=== PATIENT | female | born 1980 | race Caucasian/White ===

== ENCOUNTER 2018-08-07 11:21 | Inpatient (IN) | payer OTHER ==
[2018-08-07 12:28] LABS: Absolute Lymphocytes (CBC) 1.5 K/uL (0.7-4.9); Absolute Monocytes 0.7 K/uL (0.1-1.3); Absolute Neutrophil 7.8 K/uL (1.8-8.0); Basophils % 0.3 % (0-1.3); Eosinophils % 0.9 % (0-4.4); Hematocrit 30.7 % (36.0-45.0); Lymphocytes % 14.9 % (15.3-44.8); MPV 9.2 fL (7.6-11.3); Monocytes % 6.9 % (3.3-12.3); RBC Red Blood Cell Count 3.67 M/uL (3.86-4.86)
[2018-08-07 12:36] LABS: Urine Appearance CLEAR; Urine Bilirubin NEGATIVE (NEG); Urine Blood NEGATIVE (NEG); Urine Color YELLOW; Urine Glucose NEGATIVE (NEG); Urine Protein NEGATIVE (NEG); Urine Urobilinogen 0.2 mg/dL (0.2-1.0)
[2018-08-07 12:45] LABS: ALT/SGPT 38 U/L (12-78); AST/SGOT 31 U/L (15-37); Albumin 2.3 g/dL (3.4-5.0); Alkaline Phosphatase 89 U/L (45-117); BUN Blood Urea Nitrogen 7 mg/dL (7-18); Bicarbonate 25 mmol/L (21-32); Bilirubin Total 0.1 mg/dL (0.2-1.0); Glucose Level 94 mg/dL (74-106); Potassium 3.7 mmol/L (3.5-5.1); Protein, Total 6.3 g/dL (6.4-8.2); Sodium Level 139 mmol/L (136-145); Uric Acid 6.8 mg/dL (2.6-6.0)
[2018-08-07 13:09] LABS: Urine Bacteria <20 /HPF (<20); Urine Culture Reflex Order NOT NEEDED; Urine RBC <5 /HPF (NONE SEEN)
[2018-08-07 13:09] LABS: Urine Protein/Creatinine Ratio 0.18 ratio (<0.15)
[2018-08-07] MEDS ORDERED: Ringers Lactate 1,000 ML IV PRN (14:03)
[2018-08-07] MEDS ORDERED: miSOPROStol 100 MCG TAB VAG PRN (14:06)
[2018-08-07] MEDS ORDERED: MAGNESIUM SULF/STERILE WATER 1,000 ML IV SCH (15:00)
[2018-08-07] MEDS ORDERED: Ringers Lactate 1,000 ML IV SCH (15:00)
[2018-08-07 15:13] LABS: RPR Titer ND
[2018-08-07 15:52] VITALS: BMI 33.8
[2018-08-07] MEDS ORDERED: ZOLPIDEM TARTRATE 5 MG TABLET PO PRN (17:16)
[2018-08-07] MEDS ORDERED: LABETALOL 20 MG/4ML SYRINGE IV ONE (17:26)
[2018-08-07] MEDS ORDERED: LABETALOL 20 MG/4ML SYRINGE IV PRN (18:04)
[2018-08-07] MEDS ORDERED: OXYTOCIN/LR 20 UNIT/1,000 ML BAG IV SCH (21:00)
[2018-08-07 21:27] LABS: RPR (Rapid Plasma Reagin) NON-REACT (NON-REACT)
[2018-08-08] MEDS ORDERED: BUTORPHANOL 1 MG/ML INJ IV PRN (00:04)
[2018-08-08] MEDS ORDERED: PROMETHAZINE 25 MG/ML VIAL IV ONE (00:04)
[2018-08-08] MEDS ORDERED: VALACYCLOVIR 500 MG TAB PO SCH (09:00)
[2018-08-08] MEDS ORDERED: PROMETHAZINE 25 MG/ML VIAL ONE (13:27)
[2018-08-08] MEDS ORDERED: LABETALOL 20 MG/4ML SYRINGE IV ONE (15:06)
[2018-08-08] MEDS ORDERED: BUPIVACAINE 0.25% PF 10 ML VIAL IV PRN (15:25)
[2018-08-08] MEDS ORDERED: FENTANYL/BUPIVACAINE/NS/PF 200 MCG/100 ML BAG EP PRN (15:25)
[2018-08-08] MEDS ORDERED: FENTANYL CITR 100 MCG/2 ML IV ONE (15:35)
[2018-08-08] MEDS ORDERED: ROPIVACAINE HCL 20 ML ONE (16:11)
[2018-08-08] MEDS ORDERED: NA CIT/CITRIC AC 30 ML ORAL UDC PO ONE (17:00)
[2018-08-08] MEDS ORDERED: CEFAZOLIN 2 GM in NA CHLORIDE 0.9% 100 ML IVPB ONE (19:04)
[2018-08-08] MEDS ORDERED: FAMOTIDINE 20 MG/2 ML VIAL IV ONE (19:24)
[2018-08-08] MEDS ORDERED: CEFAZOLIN 2GM (PREMIX IV) 0 GM/0 ML BAG ONE (19:26)
[2018-08-08] MEDS ORDERED: NA CHLORIDE 0.9% 0 ML IV ONE (19:31)
[2018-08-08] MEDS ORDERED: METHYLERGONOVINE 0.2MG/ML AMP IM ONE (19:45)
[2018-08-08] MEDS ORDERED: CARBOPROST TROME 250 MCG/ML IM ONE (19:45)
[2018-08-08] MEDS ORDERED: METOCLOPRAMIDE 10 MG/2mL INJ IV SCH (20:00)
[2018-08-08] MEDS ORDERED: LIDOCAINE 2% W/EPI 1:200,000 MPF 20 ML VIAL IM ONE (20:33)
[2018-08-08] MEDS ORDERED: OXYTOCIN 10 UNIT/ML ML IV ONE (20:35)
[2018-08-08] MEDS ORDERED: MORPHINE SULFATE/PF 1 MG/ML (10 ML AMP) ONE (20:36)
[2018-08-08] MEDS ORDERED: ACETAMINOPHEN 500 MG TAB PO PRN (21:05)
[2018-08-08] MEDS ORDERED: BISACODYL 10 MG RECTAL SUPP RECT PRN (21:05)
[2018-08-08] MEDS ORDERED: Oxycodone HCl/Acetaminophen 1 TAB TAB PO PRN ×2 (21:05)
[2018-08-08] MEDS ORDERED: ONDANSETRON 4 MG (ODT) TAB PO PRN (21:05)
[2018-08-08] MEDS ORDERED: DOCUSATE NA/SENNA CONC 1 TAB PO PRN (21:05)
[2018-08-08] MEDS ORDERED: KETOROLAC 30 MG/ML INJ IV PRN (21:06)
--- NOTE | 2018-08-08 21:08 | P.OP ---
Heel Seat Pounder: Adela Trammell Preoperative diagnosis: 37 weeks preeclampsia, category II tracing remote from delivery Postoperative diagnosis: same Primary procedure: Primary low transverse section Anesthesia: Epidural Estimated blood loss: 800cc Specimen: Cord blood, placenta Operative Technique: The patient was taken to the operating room where epidural anesthesia was found to be adequate. The patient was prepped and draped in the usual sterile fashion in the dorsal supine position with a left-weller tilt. A Pfannenstiel skin incision was made with the scalpel and carried through to the underlying layer of fascia using the Bovie. The fascia was incised in the midline and extended laterally using Lloyd scissors. Macie clamps were used to elevate the superior aspect of the fascial incision, which was elevated, and the underlying rectus muscles were dissected off bluntly and using Lloyd scissors. Attention was then turned to the inferior aspect of the fascial incision, which in similar fashion was grasped with Macie clamps, elevated, and the underlying rectus muscles were dissected off bluntly and using Lloyd scissors. The rectus muscles were dissected in the midline. The peritoneum was bluntly dissected, entered, and extended superiorly and inferiorly with good visualization of the bladder. The bladder blade was inserted. The vesicouterine peritoneum was identified with pickups and entered sharply using Metzenbaum scissors. This incision was extended laterally and the bladder flap was created digitally. The bladder blade was reinserted. The lower uterine segment was incised in a transverse fashion using the scalpel and extended using manual traction. Clear fluid was noted. The was subsequently delivered atraumatically. The nose and mouth were bulb suctioned. The cord was clamped and cut. The was subsequently handed to the awaiting nursery nurse. The placenta was removed spontaneously intact with a 3- vessel cord noted. The uterus was exteriorized and cleared of all clots and debris. The uterine incision was repaired in 2 layers using 0 vicryl suture. Hemostasis was visualized. The uterus was returned to the abdomen. The uterine incision was reexamined and was noted to be hemostatic. The rectus muscles were reapproximated in the midline using 1-0 Vicryl. The fascia was closed with 0 Vicryl, the subcutaneous layer was closed with 2-0 plain gut, and the skin was closed with 3.0 vicryl on a Regan needle. Sponge, lap, and instrument counts were correct x2. The patient was stable at the completion of the procedure and was subsequently transferred to the recovery room in stable condition. Complications: None Drain(s): Urinary catheter Transferred to: Recovery Room Condition: Good
[2018-08-09] MEDS ORDERED: DIPHENHYDRAMINE 50 MG/ML VIAL IV ONE (02:01)
[2018-08-09 06:21] LABS: Absolute Lymphocytes (CBC) 1.5 K/uL (0.7-4.9); Absolute Monocytes 0.6 K/uL (0.1-1.3); Absolute Neutrophil 9.9 K/uL (1.8-8.0); Basophils % 0.2 % (0-1.3); Eosinophils % 0.3 % (0-4.4); Hematocrit 29.5 % (36.0-45.0); Lymphocytes % 12.2 % (15.3-44.8); MPV 9.1 fL (7.6-11.3); Monocytes % 5.3 % (3.3-12.3)
[2018-08-09 08:44] VITALS: O2SAT 99
[2018-08-09] MEDS ORDERED: FAMOTIDINE 20 MG/2 ML VIAL IV ONE (19:04)
--- NOTE | 2018-08-09 21:18 | P.PN ---
Date of Service: 08/09/18 Patient is a 38 y/o s/p primary section due to category II heart tracing remote from delivery and arrest of labor. She is doing well. She is tolerating diet. Her pain is well controlled. She is afebrile. She has no complaints today she is bonding well with the baby and is breast-feeding. care complicated by preeclampsia. Vital sign stable; BP still slightly elevated. General: Resting in bed no distress Head and neck: Normocephalic atraumatic, supple Respiratory: Symmetric nonlabored breathing Abdomen: Soft, mildly distended, mildly tender. Incision clean dry and intact Bilateral lower extremities: No clubbing or cyanosis; +2 edema bilaterally. Assessment and plan patient is postop day 1 after repeat section she is doing well. Pain is well controlled. Discontinue IV discontinue [place] catheter. Encourage patient to ambulate. Oral labetalol ordered. Possible discharge home tomorrow.
[2018-08-09] MEDS ORDERED: PROMETHAZINE 25 MG/ML VIAL IM PRN (23:59)
[2018-08-10] MEDS ORDERED: IBUPROFEN 200 MG TAB PO PRN (07:30)
[2018-08-10] MEDS ORDERED: IBUPROFEN 400 MG TAB ONE (08:16)
[2018-08-10 08:26] VITALS: TEMP 98
[2018-08-10 17:29] VITALS: BP 141/90
[2018-08-11 02:52] LABS: HBsAG Nonreactive (Nonreactive)
[2018-08-11] MEDS ORDERED: IBUPROFEN 200 MG TAB PO PRN (03:00)
--- NOTE | 2018-08-19 21:54 | P.DS ---
Admission Date: 08/07/18 Discharge Date: 08/10/18 Disposition: ROUTINE DISCHARGE Discharge Condition: GOOD Vital Signs/Physical Exam: Temp Pulse Resp BP Pulse Ox 98.0 F 69 18 141/90 H 08/10/18 07:30 08/10/18 16:00 08/10/18 16:00 08/10/18 16:00 Laboratory Data at Discharge: WBC 12.1 K/uL (4.3-10.9) H D 08/09/18 05:55 Hgb 10.0 g/dL (12.0-15.0) L 08/09/18 05:55 Hct 29.5 % (36.0-45.0) L 08/09/18 05:55 Plt Count 329 K/uL (152-406) D 08/09/18 05:55 Sodium 139 mmol/L (136-145) 08/07/18 12:12 Potassium 3.7 mmol/L (3.5-5.1) 08/07/18 12:12 BUN 7 mg/dL (7-18) 08/07/18 12:12 Creatinine 0.68 mg/dL (0.55-1.3) 08/07/18 12:12 Glucose 94 mg/dL (74-106) 08/07/18 12:12 Uric Acid 6.8 mg/dL (2.6-6.0) H 08/07/18 12:12 Magnesium 4.7 mg/dL (1.8-2.4) H* D 08/09/18 05:55 Total Bilirubin 0.1 mg/dL (0.2-1.0) L 08/07/18 12:12 AST 31 U/L (15-37) 08/07/18 12:12 ALT 38 U/L (12-78) 08/07/18 12:12 Alkaline Phosphatase 89 U/L (45-117) 08/07/18 12:12 Home Medications: Vit #76/Iron,Carb/FA [Prenatabs Rx Tablet] 1 each PO DAILY 08/08/18 Valacyclovir [Valtrex*] 1 tab PO BID 08/08/18 Codeine/APAP [Tylenol W/Codeine #3 tab] 1 tab PO Q6HP PRN #24 tab 08/10/18 Labetalol HCl [Trandate*] 200 mg PO BID #60 tab 12/29/18 New Medications: Codeine/APAP [Tylenol W/Codeine #3 tab] 1 tab PO Q6HP PRN #24 tab PRN Reason: Pain Labetalol HCl [Trandate*] 200 mg PO BID #60 tab Followup: Hernando Daniels, [ACTIVE - CAN ADMIT] - (Make appointment for or Sunday to have Dr. Daniels check on incision.)
== END 2018-08-10 17:20 | disposition home or self-care (01) | DRG 788 ==
LOC: L&D 11:21 → 2ND-WC 14:04
PROVIDERS: ADMIT Student in an Organized Health Care Education/Training Program; ATTEND Student in an Organized Health Care Education/Training Program
PROC: 10D00Z1 Extraction of Products of Conception, Low, Open Approach (ICD-10-PCS; principal; 2018-08-08 20:00)
DX: O14.94 Unspecified pre-eclampsia, complicating childbirth (principal); O76 Abnormality in fetal heart rate and rhythm complicating labor and delivery; Z3A.37 37 weeks gestation of pregnancy; Z37.0 Single live birth
CPT/HCPCS: 36415; 80053; 81001; 82570; 83735; 84156; 84550; 85025; 86592; 86850; 86900; 86901; 87340; 88307; J0595; J0690; J2210; J2550; J2590; J2765; J3010; J3475